=== PATIENT | female | born 1955 | race Caucasian/White ===

== ENCOUNTER 2017-12-17 10:25 | Outpatient (CLI) | payer BC | END 2017-12-17 10:26 | disposition home or self-care (01) | LOC: CTENTCT 10:25 | PROVIDERS: ATTEND Otolaryngology Plastic Surgery within the Head & Neck | DX: J01.81 Other acute recurrent sinusitis (principal) | CPT/HCPCS: 70486 ==

== ENCOUNTER 2018-01-20 08:09 | Day surgery (SDC) | payer BC ==
[2018-01-19 09:16] VITALS: BMI 35.9
[2018-01-20] MEDS ORDERED: Lidocaine 1% w/Epinephrine 1:100K 30 ML VIAL ONE (10:22)
[2018-01-20] MEDS ORDERED: Oxymetazoline HCl 0.05% ( 15 ML ) ONE ×2 (10:22→11:11)
[2018-01-20] MEDS ORDERED: Fentanyl 100 MCG/2 ML VIAL ONE (11:23)
[2018-01-20] MEDS ORDERED: Bacitracin Zinc Ointment 30 gm TUBE ONE (11:34)
[2018-01-20] MEDS ORDERED: Hydrocodone-Acetamin 15 ML UDCUP ONE (13:22)
--- NOTE | 2018-01-21 07:56 | EKG ---
Test Reason : PREOP Blood Pressure : / mmHG Vent. Rate : 061 BPM Atrial Rate : 061 BPM P-R Int : 160 ms QRS Dur : 078 ms QT Int : 402 ms P-R-T Axes : 060 025 028 degrees QTc Int : 404 ms Normal sinus rhythm Normal ECG No previous ECGs available Confirmed by DR. Sudeep SHRESTHA ([id number]) on 01/21/2018 7:56:27 AM Referred By: JEANNA Confirmed By:DR. Sudeep SHRESTHA
--- NOTE | 2018-01-21 14:07 | OP ---
DATE OF PROCEDURE: 01/20/2018 PREOPERATIVE DIAGNOSES: 1. Acquired nasal deformity. 2. Nasal septal deviation. 3. Bilateral inferior turbinate hypertrophy. 4. Chronic rhinosinusitis. POSTOPERATIVE DIAGNOSES: 1. Acquired nasal deformity. 2. Nasal septal deviation. 3. Bilateral inferior turbinate hypertrophy. 4. Chronic rhinosinusitis. PROCEDURES: 1. Bilateral endoscopic sinus surgery, total ethmoidectomies. 2. Bilateral endoscopic sinus surgery, maxillary antrostomies. 3. Bilateral endoscopic sinus surgery, frontal sinusotomies. 4. Nasal septoplasty. SURGEON: Vlad Stuart M.D. ESTIMATED BLOOD LOSS: 50 mL. COMPLICATIONS: None. ANESTHESIA: GETA. PROCEDURE IN DETAIL: The patient was taken to the operating room and placed supine on the table. Ge neral endotracheal anesthesia was obtained by the Anesthesia staff. Tube was secured in the left low er lip. The patient was placed in the beach chair position. Following this, Afrin pledgets were steven gemma and the patient was prepped and draped for standard nasal procedure. Following this, the r emoved. Zero degree scope was then used to make injections of 1% lidocaine with 1:100,000 epinephrin e into the nasal septum, inferior turbinates and lateral nasal wall. Following this, the middle turb inates were identified and were gently medialized using a [place] elevator. Following this, the uncina te process was identified and was anteriorly fractured using a ball-ended probe bilaterally. The unc inate process was then removed using upbiting Blakesley forceps and the straight microdebrider. Foll owing this, the maxillary sinus ostia was identified bilaterally and the curved microdebrider along w ith the straight Blakesley forceps maxillary ostia bilaterally. Following this, the ethmoidal bulla was identified and was punctured on its medial and inferior aspect bilaterally and was removed using the 0 degree microdebrider and upbiting Blakesley forceps bilaterally. Following this, the gra nd lamella was identified bilaterally and was punctured into the posterior ethmoidal cells. Working from posterior to anterior, the ethmoidal cells were opened in mucosal-sparing technique bilaterally using the straight microdebrider and upbiting Blakesley forceps. Following this, the 45-degree endos cope and the 40-degree microdebrider blade was used to further open the frontal recess cells and fron joce sinus ostia cells bilaterally. Following this, a Pilo type incision was made on the left nasa l septum. Submucoperichondrial dissection was performed of the cartilage of the nasal septum d eviation of bone and cartilage present which was removed using straight Blakesley forceps and [place] hi forceps. Anteriorly, the nasal septum and caudal strut act had been dislocated and was obstructin g the right nasal cavity. The lower aspects of the lower lateral cartilage were then using curved scissors. It was noted that these were already dislocated from the nasal septum. Making a p ocket between these areas, the nasal septum was then reapproximated into its new anatomic position in the midline and a Monocryl stitch was used to secure the foot plates of the lower lateral . Following this, the mucoperichondrial flaps were then reapproximated using a gut stitch. The patient tolerated the procedure well. Barry splints were placed and Mirapex were placed in the midd le meatus.
== END 2018-01-20 14:10 | disposition home or self-care (01) ==
LOC: SDC 08:09
PROVIDERS: ATTEND Otolaryngology Plastic Surgery within the Head & Neck
DX: J01.81 Other acute recurrent sinusitis (principal); J34.2 Deviated nasal septum; J34.89 Other specified disorders of nose and nasal sinuses; J30.1 Allergic rhinitis due to pollen; J30.89 Other allergic rhinitis; K21.9 Gastro-esophageal reflux disease without esophagitis; Z88.5 Allergy status to narcotic agent; Z88.1 Allergy status to other antibiotic agents; Z79.899 Other long term (current) drug therapy
CPT/HCPCS: 85014; 93005; 93010; J2001; J3010